=== PATIENT | male | born 1990 | race Asian ===

== ENCOUNTER 2018-03-24 23:01 | Inpatient (IN) | payer SELFPAY ==
[~2018-03-24] VITALS: Ht 175.3 cm; Wt 85.3 kg
[2018-03-24 23:03] VITALS: Ht 175.3 cm; Wt 85.3 kg
[2018-03-24 23:53] LABS: CALCIUM 7.8 mg/dL (8.5-10.1); CARBON DIOXIDE 25.4 mmol/L (21-32); CHLORIDE SERUM 108 mmol/L (98-107); CREATININE SERUM 1.2 mg/dL (0.7-1.3); GFR1 > 60 mL/min; GLUCOSE SERUM 113 mg/dL (74-106); POTASSIUM SERUM 3.5 mmol/L (3.5-5.1); SODIUM SERUM 142 mmol/L (136-145)
[2018-03-24 23:58] LABS: ALKALINE PHOSPHATASE 62 U/L (46-116); ALT/SGPT 27 U/L (16-63); AST/SGOT 7 U/L (15-37); BILIRUBIN TOTAL 0.2 mg/dL (0.20-1.00)
[2018-03-24 23:59] LABS: ALBUMIN 3.2 g/dL (3.4-5.0); TOTAL PROTEIN, SERUM 5.9 g/dL (6.4-8.2)
[2018-03-25 00:24] LABS: BASOPHIL % 0.4 % (0-2); PLATELET COUNT 216 x10^3mcL (130-400); RED CELL DISTRIBUTION WIDTH 14.4 % (11.5-14.5)
[2018-03-25 00:30] LABS: AMPHETAMINE QUAL UR NONE DETECTED (See below)
[2018-03-25] MEDS ORDERED: ADDERALL10 MG PO (03:29)
[2018-03-25] MEDS ORDERED: LITHIUM CARBON300 MG PO (03:29)
[2018-03-25] MEDS ORDERED: XANAX2 MG PO (03:30)
[2018-03-25] MEDS ORDERED: SEROQUEL300 MG PO (03:31)
[2018-03-25 03:39] LABS: CHOLESTEROL/HDL RATIO 3.3; MAGNESIUM 1.8 mg/dL (1.8-2.4); PHOSPHOROUS 3.8 mg/dL (2.5-4.9)
[2018-03-25 03:45] LABS: T3 TOTAL 0.82 ng/mL
[2018-03-25 03:57] LABS: FREE T4 0.94 ng/dL (0.76-1.46); FREE THYROXINE INDEX 2.1 ug/dL (1.4-4.5); T4(THYROXINE) 5.6 ug/dL (4.7-13.3)
[2018-03-25 04:08] VITALS: BP 126/83
[2018-03-25 05:50] VITALS: BP 126/83
[2018-03-25 09:41] VITALS: BP 113/70
[2018-03-25 16:51] VITALS: BP 111/76
[2018-03-25 19:30] VITALS: BP 105/65
[2018-03-26 05:26] VITALS: BP 124/83
[2018-03-26 09:45] VITALS: BP 111/67
[2018-03-26 12:19] LABS: microscopic required? NO
[2018-03-26 12:43] LABS: urine erythrocyte NEGATIVE (NEGATIVE)
[2018-03-26 16:29] VITALS: BP 125/63
[2018-03-26 19:40] VITALS: BP 130/73
== END 2018-03-26 21:45 | disposition left against medical advice (07) | DRG 918 ==
LOC: ED 23:01 → MU 03-25 01:52 → DU 03-25 01:52 → MU 03-25 11:17
PROVIDERS: Emergency Medicine; Family Medicine
DX: T42.4X2A Poisoning by benzodiazepines, intentional self-harm, initial encounter (principal); E44.1 Mild protein-calorie malnutrition; F31.9 Bipolar disorder, unspecified; F25.9 Schizoaffective disorder, unspecified; F90.9 Attention-deficit hyperactivity disorder, unspecified type; E78.1 Pure hyperglyceridemia; F25.0 Schizoaffective disorder, bipolar type; T42.6X2A Poisoning by other antiepileptic and sedative-hypnotic drugs, intentional self-harm, initial encounter; F17.210 Nicotine dependence, cigarettes, uncomplicated; Z68.25 Body mass index [BMI] 25.0-25.9, adult; Y92.89 Other specified places as the place of occurrence of the external cause
CPT/HCPCS: 84439; G0480; J7030

== ENCOUNTER 2018-06-26 06:28 | Emergency (ER) | payer OTHER ==
[~2018-06-26] VITALS: Ht 177.8 cm; Wt 86.2 kg
[2018-06-26 06:28] VITALS: BP 0/0; Ht 177.8 cm; Wt 86.2 kg
[~2018-06-26 06:28] MED LIST: ADDERALL10 MG PO; LITHIUM CARBON300 MG PO; SEROQUEL300 MG PO; XANAX2 MG PO
== END 2018-06-26 11:05 | disposition expired ==
LOC: ED 06:28
DX: I46.9 Cardiac arrest, cause unspecified (principal); F20.9 Schizophrenia, unspecified